=== PATIENT | female | born 1975 | race African-American/Black ===

== ENCOUNTER 2017-09-22 10:39 | Emergency (ER) | payer SELFPAY ==
[~2017-09-22] VITALS: Ht 152.4 cm; Wt 77.1 kg
[~2017-09-22 10:39] MED LIST: ESOM40CA PO; GLIP5TAB10 PO; HYDR-971 PO; IPRA4AER IH; VENL150C PO
--- NOTE | 2017-09-22 11:27 | EKG ---
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
[2017-09-22] MEDS ORDERED: IPRATRPIUM/ALBUTEROL 0.5/2.5MG 3 ML NEBU. NEB ONE (11:30)
[2017-09-22] MEDS ORDERED: BENZONATATE 100 MG CAPSULE. PO ONE (11:30)
[2017-09-22 11:34] LABS: BASO # 0.1 x10^3/uL (0.0-0.2); BASO % 1 % (0-3); EOS % 2 % (0-3); HEMATOCRIT 43.6 % (36.0-47.0); LYMPH # 3.7 x10^3/uL (1.0-4.8); LYMPH % 39 % (24-48); MEAN CORPUSCULAR HEMOGLOBIN 29 pg (25-35); MEAN CORPUSCULAR HGB CONC 35 g/dL (31-37); MEAN CORPUSCULAR VOLUME 83 fL (79-100); MONO % 7 % (0-9); NEUT % 51 % (31-73); PLATELET COUNT 331 x10^3/uL (140-400); RED BLOOD COUNT 5.28 x10^6/uL (3.50-5.40); RED CELL DISTRIBUTION WIDTH 13.6 % (11.5-14.5); WHITE BLOOD COUNT 9.4 x10^3/uL (4.0-11.0)
[2017-09-22 11:38] LABS: BILIRUBIN,URINE NEGATIVE (NEG); GLUCOSE,URINE NEGATIVE (NEG); NITRITE,URINE NEGATIVE (NEG); PH,URINE 8.5; PROTEIN,URINE NEGATIVE (NEG-TRACE); UROBILINOGEN,URINE 0.2 mg/dL (0.2 mg/dL)
[2017-09-22 11:44] LABS: CALCIUM 8.3 mg/dL (8.5-10.1); CREATININE 0.7 mg/dL (0.6-1.0)
[2017-09-22 11:46] LABS: POTASSIUM 5.2 mmol/L (3.5-5.1)
--- NOTE | 2017-09-22 11:47 | RAD ---
PA AND LATERAL CHEST RADIOGRAPH Clinical Indication: pain swelling. Chest pain x3 days. Comparison: Two-view chest 10/15/2015. Findings: The cardiomediastinal silhouette is normal. Pulmonary vasculature is normal. Partially calcified nodule in the right middle lobe is stable. The lungs are clear. No pleural effusion or pneumothorax is seen. There is no acute bone abnormality. IMPRESSION: No acute cardiopulmonary process.
[2017-09-22 11:49] LABS: ALBUMIN 3.3 g/dL (3.4-5.0); ALBUMIN/GLOBULIN RATIO 0.9 (1.0-1.7); TOTAL BILIRUBIN 0.5 mg/dL (0.2-1.0); TOTAL PROTEIN 6.9 g/dL (6.4-8.2)
[2017-09-22 12:02] LABS: BACTERIA,URINE MANY /HPF (0-FEW); RBC,URINE OCC /HPF (0-2); SQUAMOUS EPITHELIAL CELL,UR MOD /LPF
--- NOTE | 2017-09-22 12:07 | RAD ---
Right ANKLE AP, LATERAL, OBLIQUE Clinical Indication: pain swelling x2 months. No known injury. Comparison: Right ankle, 3 views, 10/29/2005. Findings: There is no acute fracture or dislocation. The ankle mortise is intact. There is no ankle joint effusion. There is no soft tissue swelling. IMPRESSION: No acute fracture.
[2017-09-22 13:00] VITALS: BP 103/67
[2017-09-22] MEDS ORDERED: PROAIR HFA8.5 GM INH (13:24)
[2017-09-22] MEDS ORDERED: BENZ100C PO (13:24)
[2017-09-22] MEDS ORDERED: CEPH-264 PO (13:24)
--- NOTE | 2017-09-22 13:24 | PHYS DOC ---
Past Medical History Past Medical History: Asthma, Depression, Diabetes-Type II, GERD, Other Additional Past Medical Histor: hiatal hernia, PTSD Past Surgical History: Tubal ligation, Other Additional Past Surgical Histo: hand surgery Additional Information: 0.25 PPD Alcohol Use: Occasionally Drug Use: Marijuana Adult General Chief Complaint Chief Complaint: Palpitations HPI HPI Patient is a 41 year old female who presents with cough. The patient reports 1 week history of cough productive of green sputum. She reports shortness of breath, intermittent chest pain & palpitations which are not present at this time. Chest pain is left sided when present, feels sharp. She also reports nasal congestion/rhinorrhea. She also has 3 month history of pain & swelling to posterior right ankle. No recent fall or trauma. She is a current daily smoker. History of asthma, diabetes, GERD. Review of Systems Review of Systems Constitutional: Denies fever or chills Eyes: Denies change in visual acuity HENT: Reports nasal congestion & sore throat Respiratory: Reports cough & shortness of breath Cardiovascular: Reports chest pain , denies edema GI: Denies abdominal pain, nausea, vomiting : Denies dysuria or hematuria Musculoskeletal: Denies back pain, reports ankle pain. Integument: Denies rash or skin lesions Neurologic: Denies headache, focal weakness or sensory changes All other systems were reviewed and found to be within normal limits, except as documented in this note. Current Medications Current Medications Current Medications Medications (Trade) Dose Ordered Sig/Liset Start Time Stop Time Status Last Admin Dose Admin Albuterol/ Ipratropium (Duoneb) 3 ml 1X ONCE 09/22/17 11:30 09/22/17 11:31 DC 09/22/17 11:42 3 ML Benzonatate (Tessalon Perle) 100 mg 1X ONCE 09/22/17 11:30 09/22/17 11:31 DC 09/22/17 11:27 100 MG Allergies Allergies Allergies Coded Allergies Type Severity Reaction Last Updated Verified ibuprofen Allergy Severe "It affects my stomach lining" 10/15/15 Yes aspirin Allergy Intermediate 10/15/15 Yes Physical Exam Physical Exam Constitutional: obese, no acute distress, non-toxic appearance. HENT: Normocephalic, atraumatic, bilateral external ears normal, oropharynx moist, no tonsillar enlargement or exudate, nose normal. Eyes: PERRLA, EOMI, conjunctiva normal, no discharge. Neck: supple, no stridor. Cardiovascular: RRR, no murmurs, no edema. Lungs & Thorax: LCTAB, no wheezing, no respiratory distress. Abdomen: soft, nontender, nondistended. Skin: Warm, dry, no erythema, no rash. Back: No CVA tenderness. Extremities: right ankle with mild swelling & tenderness over achilles tendon, normal ROM, no focal bony tenderness, dp/pt 2+, sensation intact to foot. Neurologic: Alert and oriented X 3, no focal deficits noted. Psychologic: Affect normal, judgement normal, mood normal. Current Patient Data Vital Signs Vital Signs Date Time Temp Pulse Resp B/P (MAP) Pulse Ox O2 Delivery O2 Flow Rate FiO2 09/22/17 13:00 74 18 103/67 (79) 99 Room Air 09/22/17 10:53 98.2 98.2 Lab Values Laboratory Tests Test 09/22/17 10:45 09/22/17 11:00 09/22/17 11:06 Urine Collection Type Void Urine Color Yellow Urine Clarity Clear Urine pH 8.5 Urine Specific [place] 1.020 Urine Protein Negative mg/dL (NEG-TRACE) Urine Glucose (UA) Negative mg/dL (NEG) Urine Ketones (Stick) Negative mg/dL (NEG) Urine Blood Negative (NEG) Urine Nitrite Negative (NEG) Urine Bilirubin Negative (NEG) Urine Urobilinogen Dipstick 0.2 mg/dL (0.2 mg/dL) Urine Leukocyte Esterase Moderate (NEG) Urine RBC Occ /HPF (0-2) Urine WBC 11-20 /HPF (0-4) Urine Squamous Epithelial Cells Mod /LPF Urine Amorphous Sediment Present /HPF Urine Bacteria Many /HPF (0-FEW) White Blood Count 9.4 x10^3/uL (4.0-11.0) Red Blood Count 5.28 x10^6/uL (3.50-5.40) Hemoglobin 15.0 g/dL (12.0-15.5) Hematocrit 43.6 % (36.0-47.0) Mean Corpuscular Volume 83 fL (79-100) Mean Corpuscular Hemoglobin 29 pg (25-35) Mean Corpuscular Hemoglobin Concent 35 g/dL (31-37) Red Cell Distribution Width 13.6 % (11.5-14.5) Platelet Count 331 x10^3/uL (140-400) Neutrophils (%) (Auto) 51 % (31-73) Lymphocytes (%) (Auto) 39 % (24-48) Monocytes (%) (Auto) 7 % (0-9) Eosinophils (%) (Auto) 2 % (0-3) Basophils (%) (Auto) 1 % (0-3) Neutrophils # (Auto) 4.8 x10^3uL (1.8-7.7) Lymphocytes # (Auto) 3.7 x10^3/uL (1.0-4.8) Monocytes # (Auto) 0.7 x10^3/uL (0.0-1.1) Eosinophils # (Auto) 0.1 x10^3/uL (0.0-0.7) Basophils # (Auto) 0.1 x10^3/uL (0.0-0.2) Sodium Level 141 mmol/L (136-145) Potassium Level 5.2 mmol/L (3.5-5.1) H Chloride Level 107 mmol/L (98-107) Carbon Dioxide Level 22 mmol/L (21-32) Anion Gap 12 (6-14) Blood Urea Nitrogen 12 mg/dL (7-20) Creatinine 0.7 mg/dL (0.6-1.0) Estimated GFR (Cockcroft-Gault) 111.0 BUN/Creatinine Ratio 17 (6-20) Glucose Level 87 mg/dL (70-99) Calcium Level 8.3 mg/dL (8.5-10.1) L Total Bilirubin 0.5 mg/dL (0.2-1.0) Aspartate Amino Transferase (AST) 31 U/L (15-37) Alanine Aminotransferase (ALT) 26 U/L (14-59) Alkaline Phosphatase 103 U/L (46-116) Troponin I Quantitative < 0.017 ng/mL (0.000-0.055) YV-Yet-M-Type Natriuretic Peptide 23 pg/mL (0-124) Total Protein 6.9 g/dL (6.4-8.2) Albumin 3.3 g/dL (3.4-5.0) L Albumin/Globulin Ratio 0.9 (1.0-1.7) L POC Urine HCG, Qualitative Hcg negative (Negative) Laboratory Tests 09/22/17 11:00 Laboratory Tests 09/22/17 11:00 EKG EKG Interpreted by ms: 1056: Normal sinus rhythm rate 80, no acute ST or T wave changes, normal intervals, no ectopy.[] Radiology/Procedures Radiology/Procedures PROCEDURE: CHEST PA & LATERAL PA AND LATERAL CHEST RADIOGRAPH Clinical Indication: pain swelling. Chest pain x3 days. Comparison: Two-view chest 10/15/2015. Findings: The cardiomediastinal silhouette is normal. Pulmonary vasculature is normal. Partially calcified nodule in the right middle lobe is stable. The lungs are clear. No pleural effusion or pneumothorax is seen. There is no acute bone abnormality. IMPRESSION: No acute cardiopulmonary process. DICTATED and SIGNED BY: HUE VALERA MD DATE: 09/22/17 1141 PROCEDURE: ANKLE RIGHT 3V Right ANKLE AP, LATERAL, OBLIQUE Clinical Indication: pain swelling x2 months. No known injury. Comparison: Right ankle, 3 views, 10/29/2005. Findings: There is no acute fracture or dislocation. The ankle mortise is intact. There is no ankle joint effusion. There is no soft tissue swelling. IMPRESSION: No acute fracture. DICTATED and SIGNED BY: HUE VALERA MD DATE: 09/22/17 1002[] Course & Med Decision Making Course & Med Decision Making Pertinent Labs and Imaging studies reviewed. (See chart for details) The patient presents with cough & chest pain/palpitations. Gave duoneb. Obtained labs, EKG, CXR. She has no evidence of pneumonia, not wheezing on exam , stable vitals without hypoxia. No evidence of arrhythmia or acute ischemia. She did have UTI. Gave prescriptions for keflex, tessalon perles, albuterol inhaler. Recommend rest, hydration, tylenol for pain/fever, ricardo wrap & ice for achilles tendonitis. Follow up with PCP in 2-3 days. Come back for high fever , severe shortness of breath or chest pain, uncontrolled vomiting, severe abdominal pain, any otherwise worsening condition. Discharged home in stable condition. [] Dragon Disclaimer Dragon Disclaimer This electronic medical record was generated, in whole or in part, using a voice recognition dictation system. Departure Departure Impression: Primary Impression: Urinary tract infection Additional Impressions: Upper respiratory infection Achilles tendinitis Disposition: 01 HOME, SELF-CARE Condition: STABLE Referrals: AMADA MATTHEWS MD (PCP) Patient Instructions: Achilles Tendinitis, Upper Respiratory Infection, Adult, [id number], Urinary Tract Infection, [id number] Additional Instructions: You were seen in the emergency department today for cough. Use the inhaler and cough drops. Take antibiotics for urinary tract infection. Wear an Ricardo wrap and apply ice for inflamed tendon. Follow-up with primary care physician within one week. Return to the emergency department for high fever, severe shortness of breath or chest pain, severe abdominal pain, uncontrolled vomiting, any otherwise worsening condition. Scripts Cephalexin (KEFLEX) 500 Mg Capsule 1 CAP PO BID, #14 CAP Prov: CHAS ALVAREZ MD 09/22/17 Benzonatate (TESSALON PERLE) 100 Mg Capsule 100 MG PO TID Y for COUGH, #15 CAP Prov: CHAS ALVAREZ MD 09/22/17 Albuterol Sulfate (PROAIR HFA INHALER) 8.5 Gm Hfa.aer.ad 1 PUFF INH PRN Q6HRS Y for SHORTNESS OF BREATH, #1 INHALER 0 Refills Prov: CHAS ALVAREZ MD 09/22/17 Problem Qualifiers CHAS ALVAREZ MD Sep 22, 2017 13:24
== END 2017-09-22 13:38 | disposition home or self-care (01) ==
LOC: ER 10:39
DX: J06.9 Acute upper respiratory infection, unspecified (principal); N39.0 Urinary tract infection, site not specified; M76.61 Achilles tendinitis, right leg; J45.909 Unspecified asthma, uncomplicated; F32.9 Major depressive disorder, single episode, unspecified; E11.9 Type 2 diabetes mellitus without complications; K21.9 Gastro-esophageal reflux disease without esophagitis; F43.10 Post-traumatic stress disorder, unspecified; F17.200 Nicotine dependence, unspecified, uncomplicated; F12.10 Cannabis abuse, uncomplicated; E66.9 Obesity, unspecified; Z98.51 Tubal ligation status; Z88.6 Allergy status to analgesic agent; Z68.33 Body mass index [BMI] 33.0-33.9, adult
CPT/HCPCS: 36415; 71020; 73610; 80053; 81001; 81025; 83880; 84484; 85025; 87086; 93005; 94640; 99285; J7620

== ENCOUNTER 2018-02-16 07:18 | Emergency (ER) | payer SELFPAY | END 2018-02-16 08:52 | disposition home or self-care (01) | LOC: ER 07:18 | DX: S93.401A Sprain of unspecified ligament of right ankle, initial encounter (principal); F12.10 Cannabis abuse, uncomplicated; E11.9 Type 2 diabetes mellitus without complications; K21.9 Gastro-esophageal reflux disease without esophagitis; J45.909 Unspecified asthma, uncomplicated; X58.XXXA Exposure to other specified factors, initial encounter; Y93.89 Activity, other specified; Y99.8 Other external cause status; Y92.89 Other specified places as the place of occurrence of the external cause | CPT/HCPCS: 73610; 99284 ==

== ENCOUNTER 2018-09-19 11:40 | Emergency (ER) | payer SELFPAY ==
[~2018-09-19] VITALS: Ht 152.4 cm; Wt 77.1 kg
[~2018-09-19 11:40] MED LIST changes: +ALBU2.5V8 INH; +BENZ100C PO; +CEPH-264 PO; +HYDR-3164 PO; -HYDR-971 PO; +NAPR-514 PO
--- NOTE | 2018-09-19 12:20 | PHYS DOC ---
Past Medical History Past Medical History: Asthma, Depression, Diabetes-Type II, GERD, Other Additional Past Medical Histor: hiatal hernia, PTSD Past Surgical History: Tubal ligation, Other Additional Past Surgical Histo: hand surgery Alcohol Use: Occasionally Drug Use: Marijuana Adult General Chief Complaint Chief Complaint: ASTHMA HPI HPI 42-year-old female presents to ER with complaints of increased shortness of air and right side chest pain. Patient has history of asthma and is a daily smoker. Review of Systems Review of Systems Constitutional: Denies fever or chills [] Eyes: Denies change in visual acuity, redness, or eye pain [] HENT: Denies nasal congestion or sore throat [] Respiratory: Denies cough or shortness of breath [] Cardiovascular: No additional information not addressed in HPI [] GI: Denies abdominal pain, nausea, vomiting, bloody stools or diarrhea [] : Denies dysuria or hematuria [] Musculoskeletal: Denies back pain or joint pain [] Integument: Denies rash or skin lesions [] Neurologic: Denies headache, focal weakness or sensory changes [] Endocrine: Denies polyuria or polydipsia [] All other systems were reviewed and found to be within normal limits, except as documented in this note. Current Medications Current Medications Current Medications Medications (Trade) Dose Ordered Sig/Liset Start Time Stop Time Status Last Admin Dose Admin Albuterol/ Ipratropium (Duoneb) 3 ml 1X ONCE 09/19/18 12:30 09/19/18 12:31 DC 09/19/18 12:07 3 ML Prednisone (Prednisone) 50 mg 1X ONCE 09/19/18 12:30 09/19/18 12:31 DC 09/19/18 13:03 50 MG Allergies Allergies Allergies Coded Allergies Type Severity Reaction Last Updated Verified ibuprofen Allergy Severe "It affects my stomach lining" 10/15/15 Yes aspirin Allergy Intermediate 10/15/15 Yes Physical Exam Physical Exam Constitutional: Well developed, well nourished, no acute distress, non-toxic appearance. [] HENT: Normocephalic, atraumatic, bilateral external ears normal, oropharynx moist, no oral exudates, nose normal. [] Eyes: PERRLA, EOMI, conjunctiva normal, no discharge. [] Neck: Normal range of motion, no tenderness, supple, no stridor. [] Cardiovascular:Heart rate regular rhythm, no murmur [] Lungs & Thorax: Bilateral breath sounds clear to auscultation [] Abdomen: Bowel sounds normal, soft, no tenderness, no masses, no pulsatile masses. [] Skin: Warm, dry, no erythema, no rash. [] Back: No tenderness, no CVA tenderness. [] Extremities: No tenderness, no cyanosis, no clubbing, ROM intact, no edema. [] Neurologic: Alert and oriented X 3, normal motor function, normal sensory function, no focal deficits noted. [] Psychologic: Affect normal, judgement normal, mood normal. [] Current Patient Data Vital Signs Vital Signs Date Time Temp Pulse Resp B/P (MAP) Pulse Ox O2 Delivery O2 Flow Rate FiO2 09/19/18 12:48 98 Room Air 09/19/18 11:55 98.8 101 22 145/92 (109) 98.8 Lab Values Laboratory Tests Test 09/19/18 12:42 09/19/18 13:11 White Blood Count 12.6 x10^3/uL (4.0-11.0) H Red Blood Count 4.86 x10^6/uL (3.50-5.40) Hemoglobin 14.3 g/dL (12.0-15.5) Hematocrit 40.6 % (36.0-47.0) Mean Corpuscular Volume 84 fL (79-100) Mean Corpuscular Hemoglobin 30 pg (25-35) Mean Corpuscular Hemoglobin Concent 35 g/dL (31-37) Red Cell Distribution Width 14.1 % (11.5-14.5) Platelet Count 308 x10^3/uL (140-400) Neutrophils (%) (Auto) 67 % (31-73) Lymphocytes (%) (Auto) 24 % (24-48) Monocytes (%) (Auto) 6 % (0-9) Eosinophils (%) (Auto) 1 % (0-3) Basophils (%) (Auto) 1 % (0-3) Neutrophils # (Auto) 8.4 x10^3uL (1.8-7.7) H Lymphocytes # (Auto) 3.0 x10^3/uL (1.0-4.8) Monocytes # (Auto) 0.8 x10^3/uL (0.0-1.1) Eosinophils # (Auto) 0.1 x10^3/uL (0.0-0.7) Basophils # (Auto) 0.2 x10^3/uL (0.0-0.2) Sodium Level 140 mmol/L (136-145) Potassium Level 3.9 mmol/L (3.5-5.1) Chloride Level 105 mmol/L (98-107) Carbon Dioxide Level 23 mmol/L (21-32) Anion Gap 12 (6-14) Blood Urea Nitrogen 8 mg/dL (7-20) Creatinine 1.1 mg/dL (0.6-1.0) H Estimated GFR (Cockcroft-Gault) 65.6 BUN/Creatinine Ratio 7 (6-20) Glucose Level 102 mg/dL (70-99) H Calcium Level 9.1 mg/dL (8.5-10.1) Magnesium Level 1.8 mg/dL (1.8-2.4) Total Bilirubin 0.5 mg/dL (0.2-1.0) Aspartate Amino Transferase (AST) 14 U/L (15-37) L Alanine Aminotransferase (ALT) 14 U/L (14-59) Alkaline Phosphatase 103 U/L (46-116) Troponin I Quantitative < 0.017 ng/mL (0.000-0.055) Total Protein 7.0 g/dL (6.4-8.2) Albumin 3.2 g/dL (3.4-5.0) L Albumin/Globulin Ratio 0.8 (1.0-1.7) L POC Urine HCG, Qualitative Hcg negative (Negative) Laboratory Tests 09/19/18 12:42 Laboratory Tests 09/19/18 12:42 EKG EKG [] Radiology/Procedures Radiology/Procedures [] Course & Med Decision Making Course & Med Decision Making Pertinent Labs and Imaging studies reviewed. (See chart for details) 1340: On reevaluation patient reports her symptoms have improved. Patient has increased air movement in all lung wan continues to have rhonchi in bilateral upper lung wan. Pt has O2 sat 98% RA. Patient's are equal and nonlabored. Discussed test results and patient feels comfortable with home discharge without further monitoring. Discussed prescriptions for doxycycline and prednisone with discharge paperwork. Patient encouraged to increase fluid intake. Patient advised on monitoring blood sugar while on prednisone. Smoking cessation was discussed. Dragon Disclaimer Dragon Disclaimer This electronic medical record was generated, in whole or in part, using a voice recognition dictation system. Departure Departure Impression: Primary Impression: Asthma exacerbation Disposition: 01 HOME, SELF-CARE Condition: STABLE Referrals: NO PCP (PCP) Patient Instructions: Asthma, Adult, Chest Pain (Nonspecific), Smoking Cessation Additional Instructions: Drink plenty of water. Avoid smoking. Use inhaler as prescribed. If symptoms persist or with any concerns follow-up with primary care physician for reevaluation and further care. Scripts Prednisone (PREDNISONE) 50 Mg Tablet 50 MG PO DAILY, #4 TAB Start 09/20/18 Prov: BRYAN LEWIS APRN 09/19/18 Doxycycline Monohydrate (DOXYCYCLINE MONOHYDRATE) 100 Mg Capsule 1 CAP PO BID, #14 CAP 0 Refills Prov: BRYAN LEWIS APRN 09/19/18 BRYAN LEWIS APRN Sep 19, 2018 12:20
[2018-09-19] MEDS ORDERED: predniSONE 10 MG TABLET PO ONE (12:30)
[2018-09-19] MEDS ORDERED: IPRATRPIUM/ALBUTEROL 0.5/2.5MG 3 ML NEBU. NEB ONE (12:30)
--- NOTE | 2018-09-19 12:37 | RAD ---
CHEST PA LATERAL History: ASTHMA, SHORT OF BREATH. Comparison: September 22, 2017 Heart size: Within normal limits. Nancy/mediastinum: Within normal limits Lungs: Nodular density in the right lower lung is unchanged since November 07, 2013. No evidence of consolidating infiltrate. Pleura: No evidence of pleural effusion. Pneumothorax: None visualized Bones: Regional skeleton appears grossly intact. Miscellaneous: None Impression: No evidence of acute consolidating infiltrate. Right lower lung nodule is unchanged since 2013. Electronically signed by: Clem Wong MD (09/19/2018 12:33 PM) [facility] [id number]
[2018-09-19 12:54] LABS: BASO # 0.2 x10^3/uL (0.0-0.2); BASO % 1 % (0-3); EOS # 0.1 x10^3/uL (0.0-0.7); EOS % 1 % (0-3); HEMATOCRIT 40.6 % (36.0-47.0); HEMOGLOBIN 14.3 g/dL (12.0-15.5); LYMPH % 24 % (24-48); MEAN CORPUSCULAR HEMOGLOBIN 30 pg (25-35); MEAN CORPUSCULAR HGB CONC 35 g/dL (31-37); MEAN CORPUSCULAR VOLUME 84 fL (79-100); MONO # 0.8 x10^3/uL (0.0-1.1); MONO % 6 % (0-9); NEUT # 8.4 x10^3uL (1.8-7.7); NEUT % 67 % (31-73); PLATELET COUNT 308 x10^3/uL (140-400); RED BLOOD COUNT 4.86 x10^6/uL (3.50-5.40); RED CELL DISTRIBUTION WIDTH 14.1 % (11.5-14.5); WHITE BLOOD COUNT 12.6 x10^3/uL (4.0-11.0)
[2018-09-19 13:04] LABS: CALCIUM 9.1 mg/dL (8.5-10.1); CREATININE 1.1 mg/dL (0.6-1.0); GFR 65.6; POTASSIUM 3.9 mmol/L (3.5-5.1)
[2018-09-19 13:10] LABS: ALBUMIN 3.2 g/dL (3.4-5.0); ALBUMIN/GLOBULIN RATIO 0.8 (1.0-1.7); MAGNESIUM 1.8 mg/dL (1.8-2.4); TOTAL BILIRUBIN 0.5 mg/dL (0.2-1.0)
--- NOTE | 2018-09-19 13:29 | EKG ---
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
[2018-09-19] MEDS ORDERED: DOXY100C14 PO (14:03)
[2018-09-19] MEDS ORDERED: PRED50TA PO (14:03)
[2018-09-19 14:30] VITALS: BP 106/65
== END 2018-09-19 14:35 | disposition home or self-care (01) ==
LOC: ER 11:40
DX: J45.901 Unspecified asthma with (acute) exacerbation (principal); F17.200 Nicotine dependence, unspecified, uncomplicated; E11.9 Type 2 diabetes mellitus without complications; K21.9 Gastro-esophageal reflux disease without esophagitis; F32.9 Major depressive disorder, single episode, unspecified; F43.10 Post-traumatic stress disorder, unspecified; Z98.890 Other specified postprocedural states; Z98.51 Tubal ligation status; Z88.6 Allergy status to analgesic agent
CPT/HCPCS: 36415; 71046; 80053; 81025; 83735; 84484; 85025; 93005; 94640; 99284; J7512; J7620

== ENCOUNTER 2021-01-29 13:36 | Emergency (ER) | payer OTHER ==
[~2021-01-29] VITALS: Ht 152.4 cm; Wt 81.8 kg
[~2021-01-29 13:36] MED LIST changes: +DOXY100C14 PO; +PRED50TA PO
[2021-01-29] MEDS ORDERED: ONDANSETRON PF 4 MG/2 ML VIAL. IVP ONE (14:15)
[2021-01-29] MEDS ORDERED: IV NORMAL SALINE 1000ML BAG 1,000 ML IV SCH (14:15)
[2021-01-29 14:19] LABS: BILIRUBIN,URINE NEGATIVE (NEG); CLARITY,URINE CLEAR; COLOR,URINE YELLOW; NITRITE,URINE NEGATIVE (NEG); PH,URINE 5.5 (<5.0-8.0); PROTEIN,URINE NEGATIVE (NEG-TRACE)
[2021-01-29 14:32] LABS: BACTERIA,URINE FEW /HPF (0-FEW)
[2021-01-29 15:08] LABS: BASO # 0.2 x10^3/uL (0.0-0.2); BASO % 2 % (0-3); EOS # 0.2 x10^3/uL (0.0-0.7); EOS % 3 % (0-3); HEMATOCRIT 36.1 % (36.0-47.0); HEMOGLOBIN 12.5 g/dL (12.0-15.5); LYMPH % 41 % (24-48); MEAN CORPUSCULAR HEMOGLOBIN 29 pg (25-35); MEAN CORPUSCULAR HGB CONC 35 g/dL (31-37); MEAN CORPUSCULAR VOLUME 84 fL (79-100); MONO # 0.4 x10^3/uL (0.0-1.1); MONO % 6 % (0-9); NEUT # 3.4 x10^3/uL (1.8-7.7); NEUT % 48 % (31-73); PLATELET COUNT 288 x10^3/uL (140-400); RED BLOOD COUNT 4.29 x10^6/uL (3.50-5.40); RED CELL DISTRIBUTION WIDTH 14.9 % (11.5-14.5); WHITE BLOOD COUNT 7.2 x10^3/uL (4.0-11.0)
[2021-01-29 15:19] LABS: CALCIUM 8.1 mg/dL (8.5-10.1); CREATININE 0.8 mg/dL (0.6-1.0); GFR 93.4
[2021-01-29 15:25] LABS: ALBUMIN 2.9 g/dL (3.4-5.0); ALBUMIN/GLOBULIN RATIO 0.8 (1.0-1.7); MAGNESIUM 1.8 mg/dL (1.8-2.4); TOTAL BILIRUBIN 0.3 mg/dL (0.2-1.0); TOTAL PROTEIN 6.5 g/dL (6.4-8.2)
[2021-01-29] MEDS ORDERED: MORPHINE SULFATE 4 MG/ML VIAL. IV ONE (15:45)
[2021-01-29] MEDS ORDERED: IOHEXOL 300 MG/ML 100ML VIAL. IV ONE (16:15)
[2021-01-29] MEDS ORDERED: CONTRAST GIVEN. MC PRN (16:15)
--- NOTE | 2021-01-29 16:55 | PHYS DOC ---
Past Medical History Past Medical History: Asthma, Depression, Diabetes-Type II, GERD, Other Additional Past Medical Histor: hiatal hernia, PTSD Past Surgical History: Tubal ligation, Other Additional Past Surgical Histo: hand surgery Smoking Status: Current Every Day Smoker Alcohol Use: Occasionally Drug Use: Marijuana General Adult EDM: Chief Complaint: ABDOMINAL PAIN HPI: HPI: Patient is a 45 year old female who presented to ER due to left lower abdominal pain for the last 3 days. Patient denies any nausea vomiting, no fever. Patient denies any chest pain, no cough, no trouble breathing. Patient also complained of pain on the left side of her vagina area, she feels like she has a growth there. Review of Systems: Review of Systems: Constitutional: Denies fever or chills. [] Eyes: Denies change in visual acuity. [] HENT: Denies nasal congestion or sore throat. [] Respiratory: Denies cough or shortness of breath. [] Cardiovascular: Denies chest pain or edema. [] GI: Positive for abdominal pain, no nausea vomiting, no diarrhea : Denies dysuria. Positive for left side vaginal pain. Musculoskeletal: Denies back pain or joint pain. [] Integument: Denies rash. [] Neurologic: Denies headache, focal weakness or sensory changes. [] Endocrine: Denies polyuria or polydipsia. [] Lymphatic: Denies swollen glands. [] Psychiatric: Denies depression or anxiety. [] Heart Score: C/O Chest Pain: N/A Risk Factors: Risk Factors: DM, Current or recent (<one month) smoker, HTN, HLP, family history of CAD, obesity. Risk Scores: Score 0 - 3: 2.5% MACE over next 6 weeks - Discharge Home Score 4 - 6: 20.3% MACE over next 6 weeks - Admit for Clinical Observation Score 7 - 10: 72.7% MACE over next 6 weeks - Early Invasive Strategies Current Medications: Current Medications Medications (Trade) Dose Ordered Sig/Liset Start Time Stop Time Status Last Admin Dose Admin Info (CONTRAST GIVEN -- Rx MONITORING) 1 each PRN DAILY PRN 01/29/21 16:15 01/31/21 16:14 Iohexol (Omnipaque 300 Mg/ml) 75 ml 1X ONCE 01/29/21 16:15 01/29/21 16:16 DC Morphine Sulfate (Morphine Sulfate) 4 mg 1X ONCE 01/29/21 15:45 01/29/21 15:46 DC 01/29/21 16:06 4 MG Ondansetron HCl (Zofran) 4 mg 1X ONCE 01/29/21 14:15 01/29/21 14:16 DC 01/29/21 14:43 4 MG Sodium Chloride 1,000 ml @ 1,000 mls/hr Q1H 01/29/21 14:15 01/29/21 15:14 DC 01/29/21 14:43 1,000 MLS/HR Allergies: Allergies: Allergies Coded Allergies Type Severity Reaction Last Updated Verified ibuprofen Allergy Severe "It affects my stomach lining" 10/15/15 Yes aspirin Allergy Intermediate 10/15/15 Yes Physical Exam: PE: Constitutional: Well developed, well nourished, no acute distress, non-toxic appearance. [] HENT: Normocephalic, atraumatic, bilateral external ears normal, oropharynx moist, no oral exudates, nose normal. [] Eyes: PERRLA, EOMI, conjunctiva normal, no discharge. [] Neck: Normal range of motion, no tenderness, supple, no stridor. [] Cardiovascular:Heart rate regular rhythm, no murmur [] Lungs & Thorax: Bilateral breath sounds clear to auscultation [] Abdomen: Bowel sounds normal, soft, There is tenderness in LLQ, no masses, no pulsatile masses. [] Skin: Warm, dry, no erythema, no rash. [] Back: No tenderness, no CVA tenderness. [] Extremities: No tenderness, no cyanosis, no clubbing, ROM intact, no edema. [] Neurologic: Alert and oriented X 3, normal motor function, normal sensory function, no focal deficits noted. [] Psychologic: Affect normal, judgement normal, mood normal. [] Pelvic: no external vaginal rash or swelling, no mass, no lesion. Current Patient Data: Labs: Laboratory Tests Test 01/29/21 14:00 01/29/21 14:08 01/29/21 14:41 Urine Collection Type Unknown Urine Color Yellow Urine Clarity Clear Urine pH 5.5 (<5.0-8.0) Urine Specific Irwin 1.025 (1.000-1.030) Urine Protein Negative mg/dL (NEG-TRACE) Urine Glucose (UA) Negative mg/dL (NEG) Urine Ketones (Stick) Negative mg/dL (NEG) Urine Blood Negative (NEG) Urine Nitrite Negative (NEG) Urine Bilirubin Negative (NEG) Urine Urobilinogen Dipstick 1.0 mg/dL (0.2 mg/dL) Urine Leukocyte Esterase Small (NEG) Urine RBC 1-2 /HPF (0-2) Urine WBC 5-10 /HPF (0-4) Urine Squamous Epithelial Cells Mod /LPF Urine Bacteria Few /HPF (0-FEW) POC Urine HCG, Qualitative Hcg negative (Negative) White Blood Count 7.2 x10^3/uL (4.0-11.0) Red Blood Count 4.29 x10^6/uL (3.50-5.40) Hemoglobin 12.5 g/dL (12.0-15.5) Hematocrit 36.1 % (36.0-47.0) Mean Corpuscular Volume 84 fL (79-100) Mean Corpuscular Hemoglobin 29 pg (25-35) Mean Corpuscular Hemoglobin Concent 35 g/dL (31-37) Red Cell Distribution Width 14.9 % (11.5-14.5) H Platelet Count 288 x10^3/uL (140-400) Neutrophils (%) (Auto) 48 % (31-73) Lymphocytes (%) (Auto) 41 % (24-48) Monocytes (%) (Auto) 6 % (0-9) Eosinophils (%) (Auto) 3 % (0-3) Basophils (%) (Auto) 2 % (0-3) Neutrophils # (Auto) 3.4 x10^3/uL (1.8-7.7) Lymphocytes # (Auto) 3.0 x10^3/uL (1.0-4.8) Monocytes # (Auto) 0.4 x10^3/uL (0.0-1.1) Eosinophils # (Auto) 0.2 x10^3/uL (0.0-0.7) Basophils # (Auto) 0.2 x10^3/uL (0.0-0.2) Sodium Level 140 mmol/L (136-145) Potassium Level 4.0 mmol/L (3.5-5.1) Chloride Level 108 mmol/L (98-107) H Carbon Dioxide Level 23 mmol/L (21-32) Anion Gap 9 (6-14) Blood Urea Nitrogen 10 mg/dL (7-20) Creatinine 0.8 mg/dL (0.6-1.0) Estimated GFR (Cockcroft-Gault) 93.4 BUN/Creatinine Ratio 13 (6-20) Glucose Level 84 mg/dL (70-99) Calcium Level 8.1 mg/dL (8.5-10.1) L Magnesium Level 1.8 mg/dL (1.8-2.4) Total Bilirubin 0.3 mg/dL (0.2-1.0) Aspartate Amino Transferase (AST) 23 U/L (15-37) Alanine Aminotransferase (ALT) 17 U/L (14-59) Alkaline Phosphatase 91 U/L (46-116) Total Protein 6.5 g/dL (6.4-8.2) Albumin 2.9 g/dL (3.4-5.0) L Albumin/Globulin Ratio 0.8 (1.0-1.7) L Lipase 185 U/L (73-393) Laboratory Tests 01/29/21 14:41 Laboratory Tests 01/29/21 14:41 Vital Signs: Vital Signs Date Time Temp Pulse Resp B/P (MAP) Pulse Ox O2 Delivery O2 Flow Rate FiO2 01/29/21 16:06 20 100 Room Air 01/29/21 13:58 98.0 94 126/87 (100) 98.0 EKG: EKG: [] Radiology/Procedures: Radiology/Procedures: [] Course & Med Decision Making: Course & Med Decision Making Pertinent Labs and Imaging studies reviewed. (See chart for details) Patient is a 45-year-old female who presented to ER due to abdominal pain, lab work did not show any acute problem, CT scan her abdomen pelvic was ordered to evaluate for any abdominal problem, patient declined the exam because she she had anxiety about CT scan. Patient was offered to give Ativan before the CT scan but patient declined. Patient asked how long will it take to have CT scan result done . This physician informed that it will be approximately 45 minutes to 1 hour. patient states she did not want to stay here any longer she wished to leave AMA. Notified by nurse that patient wishes to leave against medical advice. Had an extensive discussion with the patient regarding the risks of leaving AMA including but not limited to , permanent disability, and worsening condition. Patient acknowledged the risks and agreed to take full responsibility. Patient was A&Ox4 and had full medical decision making capacity. Patient signed AMA form stating they understood risks and ambulated out of ED with steady gait. Dragon Disclaimer: Kathi Disclaimer: This electronic medical record was generated, in whole or in part, using a voice recognition dictation system. Departure Departure Impression: Primary Impression: Abdominal pain Disposition: LEFT AGAINST MEDICAL ADVICE Condition: STABLE Referrals: NO PCP (PCP) Patient Instructions: Discharge Against Medical Advice MARY KAY AVALOS DO January 29, 2021 16:55
[2021-01-29 16:56] VITALS: BP 131/85
== END 2021-01-29 16:59 | disposition left against medical advice (07) ==
LOC: ER 13:36
DX: R10.32 Left lower quadrant pain (principal); K21.9 Gastro-esophageal reflux disease without esophagitis; E11.9 Type 2 diabetes mellitus without complications; J45.909 Unspecified asthma, uncomplicated; F17.200 Nicotine dependence, unspecified, uncomplicated; Z98.51 Tubal ligation status; Z98.890 Other specified postprocedural states; Z88.6 Allergy status to analgesic agent; Z88.8 Allergy status to other drugs, medicaments and biological substances
CPT/HCPCS: 36415; 80053; 81001; 81025; 83690; 83735; 85025; 87086; 96361; 96374; 96375; 99285; J2270; J2405; J7030

== ENCOUNTER 2021-02-12 12:05 | Emergency (ER) | payer MEDICAID ==
[~2021-02-12] VITALS: Ht 154.9 cm; Wt 81.8 kg
[2021-02-12] MEDS ORDERED: ALBU2.5V8 IH (13:42)
--- NOTE | 2021-02-12 13:42 | ED.ADGEN ---
Past Medical History Past Medical History: Asthma, Depression, Diabetes-Type II, GERD, Other Additional Past Medical Histor: hiatal hernia, PTSD Past Surgical History: Tubal ligation, Other Additional Past Surgical Histo: hand surgery Smoking Status: Current Every Day Smoker Alcohol Use: Occasionally Drug Use: Marijuana General Adult EDM: Chief Complaint: DIFFICULTY SWALLOWING HPI: HPI: Patient is a 45 year old female who presents emergency department with complaints of sore throat, painful swallowing, and wheezing especially at night for the last 2 days. Patient states that her grandchild recently tested positive for strep and she is concerned about possible strep pharyngitis. She denies any known exposure to COVID-19. Patient denies any chest pain, palpitations, nausea, vomiting, diarrhea, abdominal pain, fever, rash, or ear pain. Patient states she has had a bit of a dry cough recently. She reports a history of asthma but states she is out of her rescue inhaler, she does have a nebulizer at home and has medication for it. Patient also complains of nasal congestion and frequent throat clearing. She reports a history of seasonal allergies but denies taking anything for relief of her allergies. She currently rates the discomfort in her throat a 8 out of 10 on pain scale, she denies any alleviating factors, the pain is worse with swallowing. Review of Systems: Review of Systems: Complete ROS is negative unless otherwise noted in HPI. Allergies: Allergies: Allergies Coded Allergies Type Severity Reaction Last Updated Verified ibuprofen Allergy Severe "It affects my stomach lining" 10/15/15 Yes aspirin Allergy Intermediate 10/15/15 Yes Physical Exam: PE: See Above Constitutional: Well developed, well nourished, no acute distress, non-toxic appearance. [] HENT: Normocephalic, atraumatic, bilateral external ears normal, nose normal. [] Eyes: PERRLA, EOMI, conjunctiva normal, no discharge. [] Neck: Normal range of motion, no stridor. [] Cardiovascular:Heart rate regular rhythm Lungs & Thorax: Respirations even and unlabored, no retractions, no respiratory distress Abdomen: soft, no tenderness Skin: Warm, dry, no erythema, no rash. [] Extremities: No cyanosis, ROM intact, no edema. [] Neurologic: Alert and oriented X 3, no focal deficits noted. [] Psychologic: Affect normal, judgement normal, mood normal. [] Current Patient Data: Labs: Laboratory Tests Test 02/12/21 12:59 Group A Streptococcus Rapid Negative (NEGATIVE) Vital Signs: Vital Signs Date Time Temp Pulse Resp B/P (MAP) Pulse Ox O2 Delivery O2 Flow Rate FiO2 02/12/21 13:52 84 124/86 (99) 97 02/12/21 12:31 98.4 24 Room Air 98.4 EKG: EKG: [] Heart Score: C/O Chest Pain: No Risk Scores: Score 0 - 3: 2.5% MACE over next 6 weeks - Discharge Home Score 4 - 6: 20.3% MACE over next 6 weeks - Admit for Clinical Observation Score 7 - 10: 72.7% MACE over next 6 weeks - Early Invasive Strategies Radiology/Procedures: Radiology/Procedures: [] Course & Med Decision Making: Course & Med Decision Making Pertinent Labs and Imaging studies reviewed. (See chart for details) Rapid strep test is negative. Physical exam is most concerning with allergic rhinitis. Patient was encouraged to purchase Flonase and [id number] antihistamine. I encouraged her to avoid airway irritants. Will prescribe refill of patient's ProAir inhaler. Instructed patient to follow-up with her primary care doctor next week, return to the ER if symptoms worsen or fever develop. Patient verbalized an understanding of home care, medications, follow-up, and return to ED instructions and was in agreement with the plan of care. [] Kathi Disclaimer: Kathi Disclaimer: This electronic medical record was generated, in whole or in part, using a voice recognition dictation system. Departure Departure Impression: Primary Impression: Allergic rhinitis with postnasal drip Additional Impressions: Pharyngitis Medication refill Disposition: 01 HOME / SELF CARE / HOMELESS Condition: STABLE Referrals: NO PCP (PCP) Patient Instructions: Allergic Rhinitis, Viral Pharyngitis Additional Instructions: Fill the prescription(s) and use as directed. Recommend that you take 10 mg of generic Zyrtec (cetirizine) or Claritin at bedtime and use over the counter Flonase (fluticasone) nasal spray 2 sprays each nostril once daily in the morning. You may take Tylenol or ibuprofen as needed for pain/fever. Increase clear fluids. Avoid triggers such as smoke, fragrance, dust, and pollen. You may take OTC cough suppressants as needed. Follow-up with your primary care doctor if symptoms persist, return to the ER if symptoms worsen. [facility] [address] [place] [address] [facility] [address] [place] [address] [facility] [address] [facility] [place] [address] [facility] [address] [place] [address] [facility] [address] [place] [address] [address] [place] [address] [address] [place] [address] [facility] [employer] [address] [place] [address] [facility], [facility] [address] [place] [address] [facility] [address] [place] [address] Scripts Albuterol Sulfate (Proair Hfa) 8.5 Gm Hfa.aer.ad 2 PUFF IH PRN Q4-6HRS PRN for wheezing for 21 Days, #1 INHALER 0 Refills Prov: NITIN SORIANO CROWNING HAMMER OPERATOR 02/12/21 Attending Signature Attending Signature I have reviewed the PA/CHIEF TALENT OFFICER's note and plan of care. I was available for consultation as needed during the patient's visit in the emergency department. I agree with the clinical impression, plan, and disposition. Problem Qualifiers Additional Impressions: Pharyngitis Pharyngitis/tonsillitis etiology: unspecified etiology Qualified Codes: J02.9 - Acute pharyngitis, unspecified NITIN SORIANO CROWNING HAMMER OPERATOR February 12, 2021 13:42 ROSEMARIE BATISTA DO February 13, 2021 05:13
[2021-02-12 13:52] VITALS: BP 124/86
== END 2021-02-12 13:40 | disposition home or self-care (01) ==
LOC: ER 12:05
DX: J02.9 Acute pharyngitis, unspecified (principal); R13.10 Dysphagia, unspecified; J45.909 Unspecified asthma, uncomplicated; E11.9 Type 2 diabetes mellitus without complications; K21.9 Gastro-esophageal reflux disease without esophagitis; F17.200 Nicotine dependence, unspecified, uncomplicated; Z88.6 Allergy status to analgesic agent; Z88.8 Allergy status to other drugs, medicaments and biological substances
CPT/HCPCS: 87070; 87880; 99283